=== PATIENT | male | born 1985 | race Caucasian/White ===

== ENCOUNTER 2022-05-05 14:36 | Emergency (ER) | payer OTHER, SELFPAY ==
--- NOTE | ~2022-05-05 | XR_ITS ---
EXAM: XR abdomen/kub 1V DATE: 05/05/2022 18:17 HISTORY: ureterolithiasis . COMPARISON: CT abdomen and pelvis, same date. FINDINGS: Clear lung bases. Normal bowel gas pattern. No organomegaly. 6 mm left UPJ stone. Regional bones and soft tissues normal for age. IMPRESSION: 6 mm left UPJ stone. Reviewed, dictated and finalized at location K. IMPRESSION: 6 mm left UPJ stone.
--- NOTE | ~2022-05-05 | CT_ITS ---
EXAMINATION: CT abdomen pelvis wo con DATE: 05/05/2022 17:22 INDICATION: kidney stone ?? TECHNIQUE: Computed tomography (CT) of the abdomen and pelvis was performed without intravenous contr ast. Automated exposure control and iterative reconstruction technique were employed. The dose-length product was 1528.33 mGy-cm. COMPARISON: 08/19/2019. FINDINGS: Lower thorax: Unremarkable Liver: Enlarged and low density. Biliary/Gallbladder: Gallbladder is normal. No bile duct dilation. Pancreas: No mass or duct dilation. Spleen: Normal. Adrenals:No mass. Kidneys: Multiple bilateral renal calculi. Mild proximal left hydronephrosis and perinephric strandin g. 8mm left UPJ stone GI tract: No small or large bowel dilation. Normal appendix. Long segment soft tissue density wall th ickening of the distal sigmoid. Diverticulosis without diverticulitis. Mesentery/Peritoneum: No ascites, mass, or free air. Retroperitoneum: No mass. Pelvis: Pelvic organs are within normal limits. Soft Tissues: Soft tissues and body wall unremarkable. Bones: No acute osseous finding. IMPRESSION: 8 mm left UPJ stone causing mild obstructive uropathy. Hepatomegaly with steatosis. Sigmoid colon wal l thickening may reflect lack of distention or mild infectious/inflammatory change in the appropriate clinical context. Reviewed, dictated and finalized at location K. IMPRESSION: 8 mm left UPJ stone causing mild obstructive uropathy. Hepatomegaly with steato sis. Sigmoid colon wall thickening may reflect lack of distention or mild infec tious/inflammatory change in the appropriate clinical context.
[2022-05-05 14:37] VITALS: BP 183/95; PULSE 99; RESP 14; TEMP 35.9; O2SAT 97
[2022-05-05 14:56] LABS: Basophils Percent Auto 0.3 % (0.2-1.2); Eosinophils Absolute Auto 0.1 K/mm3 (0-0.3); Eosinophils Percent Auto 1.2 % (0-4.4); Hematocrit 44.6 % (42.0-52.0); Hemoglobin 14.8 g/dL (14.0-18.0); Immature Granulocyte Absolute 0.03 K/mm3 (0.00-0.031); Immature Granulocyte Percent A 0.3 % (0-0.5); Lymphocytes Absolute Auto 1.37 K/mm3 (0.9-3.2); Mean Corpuscular HGB Conc 33.2 g/dl (32-36); Mean Corpuscular Hemoglobin 29.7 pg (26-34); Mean Corpuscular Volume 89.4 fl (80-100); Monocytes Absolute Auto 0.7 K/mm3 (0.1-0.6); Neutrophils Absolute Auto 7.5 K/mm3 (1.3-6.7); Neutrophils Percent Auto 77.2 % (45.5-73.1); Platelet Count Result 353 k/mm3 (150-375); Red Blood Count 4.99 M/mm3 (4.6-6.20); Red Cell Distribution Width 13.3 % (11.5-14.5); White Blood Count 9.8 K/mm3 (4.5-10.0)
[2022-05-05 14:57] LABS: Appearance Urine Slightly Cloudy (Clear); Bilirubin Urine Negative (Negative); Blood Urine 3+ (Negative); Color Urine Yellow (Yellow); Glucose Urine UA Negative (Negative); Ketones Urine Negative (Negative); Leukocyte Esterase Ur Trace LEU/UL (Negative); Nitrate Urine Negative (Negative); Protein Urine Negative (Negative); Specific Grav Ur >= 1.030 (1.001-1.035); Urobilinogen Urine 0.2 mg/dL (<2.0)
[2022-05-05 15:05] LABS: Mucus Urine Rare /lpf; RBC Urine >75 /hpf (0-2); Squamous Epithelial Cell Urine Rare /hpf (Few); WBC Urine 0-3 /hpf
[2022-05-05 15:06] LABS: Alanine Aminotransferase 50 U/L (6-50); Alkaline Phosphatase 123 U/L (38-126); Anion Gap 11 mmol/L (8-16); Aspartate Amino Transferase 36 U/L (17-59); Bilirubin,Total 0.6 mg/dL (0.2-1.3); Blood Urea Nitrogen 12 mg/dL (9-20); Calcium 9.3 mg/dL (8.4-10.2); Carbon Dioxide 23 mmol/L (22-30); Chloride 106 mmol/L (98-107); Estimated CRCL calculation 152 ml/min; Estimated Glomerular Filt Rate > 60; Glucose 115 mg/dL (65-110); Lipase 55 U/L (23-300); Potassium 3.9 mmol/L (3.4-5.0); Sodium 140 mmol/L (137-145)
[2022-05-05 15:23] LABS: Add Urine Microscopic? YES
[2022-05-05 17:39] VITALS: BP 187/106; PULSE 87; RESP 15; O2SAT 100
--- NOTE | 2022-05-05 17:48 | ED.ABDPAIN ---
HPI - Abdominal Pain General Chief Complaint: Abdominal Pain Stated Complaint: lower abdomen pain x1 day Time Seen by Provider: 05/05/22 17:13 Source: patient Mode of arrival: ambulatory Limitations: no limitations History of Present Illness HPI narrative: This is a 36 year old male that presents to the ER for LLQ pain ongoing today. Reports the pain is sharp and constant in nature. Intermittently worse. Reports history of kidney stones. Denies fever, vomiting, dysuria, hematuria. Related Data Home Medications Medication Instructions Recorded Confirmed risankizumab-rzaa 150 mg/mL 150 mg subcut .every 3 months 09/27/21 09/29/21 subcutaneous pen injector (Skyrizi) Allergies Allergy/AdvReac Type Severity Reaction Status Date / Time BETADINE,IODINE Allergy Mild Unknown Uncoded 05/05/22 14:39 Review of Systems Review of Systems: CONSTITUTIONAL: Denies fever GASTROINTESTINAL: Reports abdominal pain. Denies nausea, vomiting, or diarrhea. GENITOURINARY: Denies dysuria or hematuria. All systems reviewed & are unremarkable except as noted in HPI and below PMFSH Past Medical History Medical History (Updated 05/05/22 @ 19:38 by Luz Estrella PA-C) Asthma HTN (hypertension) Psoriasis Surgical History Surgical History H/O hernia repair Family History Family History Father Hypertension Mother Hypertension Social History Social History Smoking status: Never smoker Alcohol intake: current Drinks per week: 3 Alcohol use details: whiskey Substance use type: does not use Additional occupation/education comments: [employer] Gender identity (if verbalized by the patient): Male Spiritual care concerns: No Exam Narrative: GENERAL: Well-appearing, well-nourished, and in no acute distress. HEAD: Normocephalic, atraumatic. EYES: EOMI. CHEST: Clear to auscultation. No respiratory distress. No wheezes rales or rhonchi HEART: Regular rate and rhythm. No murmur heard. Normal peripheral pulses. ABDOMEN: Soft, nontender, nondistended, normal active bowel sounds. No CVA tenderness EXTREMITIES: Normal range of motion. No edema. SKIN: Warm, dry, no rash. NEURO: No focal deficits. Alert and oriented x3. PSYCH: Normal mood and affect Course Consultations Consultation #1: Spoke with urology about patient and work-up who will follow-up in clinic. Date: 05/05/22 Vital Signs Vital signs: Vital Signs Temperature 96.7 F L 05/05/22 14:37 Pulse Rate 99 05/05/22 14:37 Respiratory Rate 14 05/05/22 14:37 Blood Pressure 183/95 H 05/05/22 14:37 Pulse Oximetry 97 05/05/22 14:37 Oxygen Delivery Room Air 05/05/22 14:37 Temperature 96.7 F L 05/05/22 14:37 Pulse Rate 87 05/05/22 17:39 Respiratory Rate 15 05/05/22 17:39 Blood Pressure 187/106 H 05/05/22 17:39 Pulse Oximetry 100 05/05/22 17:39 Oxygen Delivery Room Air 05/05/22 14:37 MDM - Abdominal Pain MDM Narrative Medical decision making narrative: Patient presents to the emergency department for left lower quadrant pain present today. He is afebrile and nontoxic-appearing. CBC is without leukocytosis. Metabolic panel with normal-appearing kidney function. UA without evidence of infection. Does show greater than [address] scan of the abdomen and pelvis shows an 8 mm left UPJ stone causing mild obstructive uropathy. KUB definitively identify a stone. Patient was updated on case findings. Hydrated and given pain medication with improvement in the ED. Spoke with urology about patient and work-up who will follow-up in clinic. Patient is stable and felt appropriate for further outpatient evaluation. He was given warnings to return to the ER Blood pressure elevated initially, this normalized with treatment of his michel
[2022-05-05] MEDS: ONDANSETRON INJ 4 MG/2 ML VIAL IV PUSH (18:03)
[2022-05-05] MEDS: SODIUM CHLORIDE 0.9% IV 1,000 ML 999 ML IV CONT (18:03)
[2022-05-05] MEDS: MORPHINE SULFATE (*CRX) 4 MG/ML INJ IV PUSH (19:05)
[2022-05-05 20:18] VITALS: BP 130/75; PULSE 88; RESP 18; O2SAT 99
== END 2022-05-05 20:21 | disposition home or self-care (01) ==
PROVIDERS: Emergency Provider Emergency Medicine; PCP Physician Assistant
DX: N13.9 Obstructive and reflux uropathy, unspecified (principal); N20.1 Calculus of ureter; J45.909 Unspecified asthma, uncomplicated; I10 Essential (primary) hypertension; R16.2 Hepatomegaly with splenomegaly, not elsewhere classified
CPT/HCPCS: 36415; 74018; 74176; 80053; 81001; 83690; 85025; 96361; 96365; 96375; 99284; J0131; J2270; J2405; J7030

== ENCOUNTER 2022-05-08 11:43 | Outpatient (CLI) | payer OTHER, SELFPAY ==
--- NOTE | ~2022-05-08 | XR_ITS ---
EXAMINATION: XR abdomen/kub 1V DATE: 05/08/2022 12:10 INDICATION: Left ureteral stone. TECHNIQUE: A supine view of the abdomen on 2 radiographs was obtained. COMPARISON: CT abdomen and pelvis 05/05/2022 FINDINGS: There are no dilated loops of bowel. There is a moderate volume of stool in the colon. Ther e is a 7 mm stone in proximal left ureter. IMPRESSION: 1. 7 mm stone in proximal left ureter. Reviewed, dictated and finalized at location A.
== END 2022-05-08 11:44 | disposition home or self-care (01) ==
LOC: ANHIMG 12:01
PROVIDERS: PCP Physician Assistant; Visit Provider Nurse Practitioner Adult Health
DX: N20.1 Calculus of ureter (principal)
CPT/HCPCS: 74018

== ENCOUNTER 2022-05-16 02:46 | Day surgery (SDC) | payer OTHER, SELFPAY ==
[2022-05-15 16:04] VITALS: BMI 39.7
--- NOTE | 2022-05-15 16:14 | PC.NURSE ---
Report to the Outpatient Waiting Room, entrance under the green pavilion located off [facility], at time 0830 on date 05/16/22. OR Time: 1030. - You and your visitor will be asked a series of questions to screen for COVID 19 for your protection. - Only one visitor is allowed at this time. - The patient visitor is requested to leave or wait in car when not with patient. - A mask is required within the hospital. Patients may have clear liquids (water, carbonated beverages, clear teas, apple juice) until 3 hours prior to surgery with a maximum of 20 ounces. - No food from midnight until time of surgery Take the following medications with a SIP of water the morning of surgery: AMLODIPINE, PAIN PILL (IF NEEDED) Medications to discontinue per physician: N/A Date to take last dose: N/A Please no make-up, nail croatian, hairspray, perfume, deodorant, or body powder the day of surgery. No jewelry (including any body piercings) or valuables the day of surgery, leave them at home. Please take a shower or bath the night before, or the morning of, surgery with an antibacterial soap. Wear comfortable, loose fitting clothing. - Jewelry must be removed prior to entering the operating room. Rings and piercings that are not removed may be cut off. - The hospital will not accept responsibility for valuables. - Please leave all valuables, including medications, at home the day of surgery. If you are going home after surgery, a licensed coal tram driver must drive you home. - NO public transportation without another adult. - We recommend that an adult stay with you for 24 hours following discharge. - We also recommend that you do not drive, make important decision, drink alcoholic beverages, or take any drugs that were not prescribed by your health care provider for at least 24 hours after your discharge time. Follow any additional instructions given to you from your surgeon. If you or anyone in your household have experienced Covid symptoms in the past week, please notify your surgeon or the nurse liaison at the phone number below for possible testing. Telephone instructions given to PT - MARTINEZ ESPINAL and asked if any additional questions and then verbalized understanding. Patient advised to call surgeon office or pre surgery nurse liaison [phone] if any additional questions.
--- NOTE | ~2022-05-16 | XR_ITS ---
EXAMINATION: XR abdomen/kub 1V INDICATION: Left sided stone TECHNIQUE: Supine views of the abdomen were obtained on 2 radiographs. COMPARISON: 05/08/2022 FINDINGS: There is a 5 mm stone in the proximal left ureter projecting between the left L2 and L3 tra nsverse processes. No additional urolithiasis is noted. The bowel gas pattern is normal. The visualiz ed lung bases are clear. IMPRESSION: 1. 5 mm stone in the proximal left ureter. Reviewed, dictated and finalized at location L.
--- NOTE | 2022-05-16 06:53 | WPDHPUPDATE1 ---
History and Physical Update Update Date/Time: 05/16/22 06:53 History and Physical has been reviewed, including an updated exam of the patient. There are NO changes in the patient's condition. Risks, benefits, and alternatives have been discussed and questions answered. Patient agrees to proceed with procedure.
--- NOTE | 2022-05-16 09:08 | P.PNAN_ITS ---
Anes - Initial Pre Proc Eval Procedure: Operation Date: 05/16/22 10:30 Proposed Procedures p Left Extracorporeal Shock Wave Lithotripsy - Isaac Johnson MD Date/Time: 05/16/22 09:08 Surgeon: Isaac Johnson MD Pre Op Diagnosis: Lt Ureteral Kidney Stone Patient Data Age: 36 Gender: M Height: 1.8 m Weight: 129.27 kg Allergies Allergy/AdvReac Type Severity Reaction Status Date / Time iodine Allergy Rash Verified 05/15/22 16:01 povidone-iodine Allergy Rash Verified 05/15/22 16:01 [From Betadine] Home Medications Medication Instructions Recorded Confirmed Type risankizumab-rzaa 150 mg/mL 150 mg subcut .every 3 months 09/27/21 05/15/22 History subcutaneous pen injector (Skyrizi) amlodipine 10 mg tablet 10 mg PO DAILY #90 tabs 04/01/22 05/15/22 Rx hydrocodone 5 mg-acetaminophen 325 1 tablet PO Q6H PRN pain #20 tabs 05/05/22 05/15/22 Rx mg tablet albuterol sulfate 90 mcg/actuation 2 inh inhalation Q4-6H PRN 05/15/22 05/15/22 History aerosol inhaler (ProAir HFA) Bronchospasm loratadine 10 mg tablet (Claritin) 10 mg PO DAILY PRN Allergy Symptoms 05/15/22 05/15/22 History Patient hx anesthesia problems: none Family hx anesthesia problems: none Results Review: All pre-operative results and documents have been reviewed as part of the pre- operative evaluation. [facility] Past Medical History Medical History (Updated 05/06/22 @ 00:00 by Erica Mills) Asthma HTN (hypertension) Psoriasis Surgical History Surgical History H/O hernia repair Family History Family History Father Hypertension Mother Hypertension Social History Social History Smoking packs per day: 0.5 Smoking cigarettes per day: 10.0 Years smoked: 2 Smoking pack-years: 1.00 Smoking status: Former smoker Tobacco type: cigarettes Smoking end date: 10/19/15 Alcohol intake: current Drinks per week: 5 Alcohol use details: desean Substance use: never Substance use type: does not use Living arrangements: alone Additional occupation/education comments: [employer] Gender identity (if verbalized by the patient): Male Spiritual care concerns: No Anes - Eval Final PreProcedure Day of Procedure 05/16/22 09:08 Patient weight: morbidly obese Heart: regular rate and rhythm Lungs: clear to auscultation Airway: Mallampati scale class II Neurological: alert and oriented Last oral intake: >/= 8 hours ASA classification: III Emergent: no Anesthetic plan: proceed Anesthesia type and monitoring: general LMA and standard monitoring Results Review: All pre-operative results and documents have been reviewed as part of the pre- operative evaluation. Informed Consent: The patient's anesthetic plan and its attendant risks and benefits were discussed with the patient/family/POA. Questions were solicited and answers provided to the satisfaction of the patient/family/POA.
[2022-05-16 09:30] VITALS: BP 156/95; PULSE 92; RESP 16; TEMP 36.2; O2SAT 97
[2022-05-16] MEDS: LACTATED RINGERS 1,000 ML 30 ML IV CONT (09:30)
[2022-05-16] MEDS: ceFAZolin 2 GM/D5W 50 ML 2 GM/50 ML BAG IVPB (09:49)
[2022-05-16 10:02] LABS: INR 1.1; Prothrombin Time 13.7 Seconds (11.1-14.7)
[2022-05-16 10:03] LABS: Partial Thromboplastin Time 30.8 SECONDS (22.3-36.8)
[2022-05-16] MEDS: KETOROLAC 30 MG/ML VIAL (*BKC) IV PUSH (10:03)
--- NOTE | 2022-05-16 10:17 | W.PM.PROC2 ---
Procedure Note - Detailed Date of Procedure 05/16/22 Pre-op Diagnosis Left UPJ calculus Post-op Diagnosis Same Procedure Performed Left ESWL Surgeon Isaac Johnson MD Description of Procedure The patient was brought to the operative suite where he was placed in the supine position on the Dornier lithotripsy table. The focal point of the lithotripter was placed at a 8mm left UPJ calculus. A total of 2500 shocks were delivered at a power setting of 4. There appeared to be good fragmentation of the stone. The patient tolerated the procedure well and was taken to the recovery room in good condition. Pathology None sent Complications No immediate complications Condition Stable Disposition PACU
[2022-05-16 10:31] VITALS: BP 125/76; PULSE 97; RESP 18; TEMP 37.1; O2SAT 98
[2022-05-16 10:45] VITALS: BP 127/75; PULSE 91; RESP 17; O2SAT 100
[2022-05-16 11:00] VITALS: BP 140/89; PULSE 84; RESP 12; O2SAT 98
--- NOTE | 2022-05-16 11:17 | SUR.PREOP ---
PT/PTT WAS PENDING WHEN PT TO OR; OK WITH PT GOING TO OR BEFORE RESULTS RELEASED. EKG WAIVED BY DR. BAIN.
[2022-05-16 11:18] VITALS: BP 140/91; PULSE 77; RESP 12
[2022-05-16 11:48] VITALS: BP 140/92; PULSE 77; RESP 12
== END 2022-05-16 11:57 | disposition home or self-care (01) ==
PROVIDERS: PCP Physician Assistant; Visit Provider Urology
PROC: (CPT 50590; principal; 2022-05-16 10:30)
DX: N20.0 Calculus of kidney (principal); R10.9 Unspecified abdominal pain; R31.29 Other microscopic hematuria; Z79.51 Long term (current) use of inhaled steroids; I10 Essential (primary) hypertension; J45.909 Unspecified asthma, uncomplicated; L40.9 Psoriasis, unspecified; Z87.891 Personal history of nicotine dependence; E66.01 Morbid (severe) obesity due to excess calories; Z68.37 Body mass index [BMI] 37.0-37.9, adult
CPT/HCPCS: 50590; 36415; 74018; 85610; 85730; J0690; J1100; J1885; J2250; J2405; J2704; J3010; J7120

== ENCOUNTER 2022-11-13 07:41 | Outpatient (RCR) | payer OTHER, SELFPAY ==
[2022-11-13 08:54] VITALS: BMI 40.3
[2022-11-13 08:55] VITALS: BMI 40.3
== END 2023-02-03 11:57 | disposition home or self-care (01) ==
LOC: ANHDMC 07:41
PROVIDERS: PCP Physician Assistant; Visit Provider Physician Assistant
DX: E66.01 Morbid (severe) obesity due to excess calories (principal); Z68.41 Body mass index [BMI] 40.0-44.9, adult; Z71.3 Dietary counseling and surveillance
CPT/HCPCS: 97802

== ENCOUNTER 2022-11-13 08:53 | Outpatient (CLI) | payer OTHER, SELFPAY ==
[2022-11-13 12:36] LABS: Basophils Percent Auto 0.5 % (0.2-1.2); Eosinophils Absolute Auto 0.2 K/mm3 (0-0.3); Eosinophils Percent Auto 2.5 % (0-4.4); Hematocrit 41.9 % (42.0-52.0); Immature Granulocyte Absolute 0.02 K/mm3 (0.00-0.031); Immature Granulocyte Percent A 0.3 % (0-0.5); Immature Platelet Fraction Pct 4.5 % (0.9-11.2); Lymphocytes Absolute Auto 1.92 K/mm3 (0.9-3.2); Lymphocytes Percent Auto 24.2 % (18.3-44.2); Mean Corpuscular HGB Conc 33.4 g/dl (32-36); Mean Corpuscular Hemoglobin 29.5 pg (26-34); Mean Corpuscular Volume 88.2 fl (80-100); Monocytes Absolute Auto 0.7 K/mm3 (0.1-0.6); Monocytes Percent Auto 8.4 % (2.6-8.5); Neutrophils Absolute Auto 5.1 K/mm3 (1.3-6.7); Neutrophils Percent Auto 64.1 % (45.5-73.1); Platelet Count Result 371 k/mm3 (150-375); Red Blood Count 4.75 M/mm3 (4.6-6.20); Red Cell Distribution Width 13.2 % (11.5-14.5); White Blood Count 7.9 K/mm3 (4.5-10.0)
[2022-11-13 13:00] LABS: Alanine Aminotransferase 48 U/L (6-50); Albumin Level 4.3 g/dL (3.5-5.1); Alkaline Phosphatase 98 U/L (38-126); Anion Gap 8 mmol/L (8-16); Aspartate Amino Transferase 45 U/L (17-59); Bilirubin,Total 0.6 mg/dL (0.2-1.3); Blood Urea Nitrogen 14 mg/dL (9-20); Calcium 8.9 mg/dL (8.4-10.2); Carbon Dioxide 26 mmol/L (22-30); Chloride 104 mmol/L (98-107); Cholesterol 251 mg/dL (0-200); Estimated Glomerular Filt Rate > 60; Glucose 100 mg/dL (65-110); HDL Direct 40 mg/dL; Potassium 4.1 mmol/L (3.4-5.0); Sodium 138 mmol/L (137-145); Triglycerides 344 mg/dL (<150)
[2022-11-13 13:11] LABS: LDL Cholesterol Direct 123 mg/dL
[2022-11-13 13:24] LABS: Thyroid Stimulating Hormone 0.653 uIU/mL (0.465-4.680)
[2022-11-13 13:59] LABS: Folic Acid 14.8 ng/mL (2.76->20)
== END 2022-11-13 08:54 | disposition home or self-care (01) ==
LOC: ANHWCLAB 08:57
PROVIDERS: PCP Physician Assistant
DX: Z00.00 Encounter for general adult medical examination without abnormal findings (principal); E78.5 Hyperlipidemia, unspecified; I10 Essential (primary) hypertension; R53.83 Other fatigue
CPT/HCPCS: 36415; 80053; 80061; 82607; 82746; 84443; 85025; 85055

== ENCOUNTER 2025-04-18 10:54 | Outpatient (CLI) | payer OTHER, SELFPAY ==
--- OUTSIDE RECORDS SUMMARY | 2025-04-18 11:05 | XMS_ITS | Clinical Summary ---
Author Organization [facility] Address [address] [place] [address] Phone Care Team Providers Care Sulfur Burner Name Role Phone Jakob Siegel Primary Care Provider Allergies Active Allergy Reactions Criticality Noted Date Comments Povidone Iodine Rash 12/09/2021 Iodine Rash 12/09/2021 Medications HYDROcodone-vickie taminophen (NORCO) 5-325 MG TabletIndicatio ns:Facial laceration, initial encounter Take 1-2 Tablets by mouth every 6 hours as needed for Moderate or more severe pain. 5 Tablet 12/09/2021 Active Immunizations Immunization Administration Dates Next Due TDAP Vaccine 12/09/2021 Social History Tobacco Use Types Packs/Day Years Used Date Smoking Tobacco: Former Smokeless Tobacco: Current Alcohol Use Standard Drinks/Week Comments Yes 0 (1 standard drink = 0.6 oz pur e alcohol) Sex and Gender Information Value Date Recorded Sex Assigned at Not on file Legal Sex Male 1:26 PM DEAN OF FACULTY Gender Identity Not on file Sexual Orientation Not on file Last Filed Vital Signs Vital Sign Reading Time Taken Comments Blood Pressure 187/90 12/09/2021 3:54 PM DEAN OF FACULTY Pulse 90 12/09/2021 3:54 PM DEAN OF FACULTY Temperature 36.2 C (97.1 F) 12/09/2021 1:30 PM DEAN OF FACULTY Respiratory Rate 14 12/09/2021 3:54 PM DEAN OF FACULTY Oxygen Saturation 98% 12/09/2021 3:54 PM DEAN OF FACULTY Inhaled Oxygen Concentration - - Weight 127 kg (280 lb) 12/09/2021 1:30 PM DEAN OF FACULTY Height 180.3 cm (5' 11) 12/09/2021 1:30 PM DEAN OF FACULTY Body Mass Index 39.05 12/09/2021 1:30 PM DEAN OF FACULTY Plan of Treatment Health Maintenance Due Date Last Done Comments Hepatitis C Virus (HCV) Screening 1986 Hepatitis B Immunization (1 of 3 - 19+ 3-dose series) 2005 SARS-COV-2 Immunization ( season) 2024 Influenza Immunization (Seas on Ended) 2025 Respiratory Syncytial Virus (RSV) Immunization (Adult) (1 - 1-dose 75+ series) 2061 DTaP/Tdap/Td Immunization Discontinued 12/09/2021 Human Papillomavirus (HPV) Immunization Aged Out No longer eligible b ased on patient's age to complete this topic Meningococcal Immunization (ACWY) Aged Out No longer eligible based on patient's age to complete this topic Pneumococcal Immunization Combined Aged Out No longer eligible based on patient's age to complete this topic Rotavirus Immunization Aged Out No lo nger eligible based on patient's age to complete this topic Insurance GENERIC Care Teams Sulfur Burner Relationship Specialty Start Date End Date Jakob Siegel PAC [address] [facility] [address] [facility] [address] [place], [place] [phone] PCP - General Physician Grounds Caretaker 12/09/21
[2025-04-18 11:21] LABS: Hematocrit 43.5 % (42.0-52.0); Hemoglobin 14.6 g/dL (14.0-18.0); Immature Granulocyte Percent A 0.2 % (0-0.5); Lymphocytes Absolute Auto 1.69 K/mm3 (0.9-3.2); Mean Corpuscular HGB Conc 33.6 g/dl (32-36); Mean Corpuscular Hemoglobin 29.9 pg (26-34); Mean Corpuscular Volume 89.1 fl (80-100); Nucleated Red Blood Cells Absolute Auto 0.000 K/mm3 (0.0-0.012); Nucleated Red Blood Cells Perc 0.0 % (0.0-0.2); Platelet Count Result 318 k/mm3 (150-375); Red Blood Count 4.88 M/mm3 (4.6-6.20); White Blood Count 6.0 K/mm3 (4.5-10.0)
[2025-04-18 11:37] LABS: Alanine Aminotransferase 47 U/L (6-50); Albumin Level 4.7 g/dL (3.5-5.1); Alkaline Phosphatase 86 U/L (38-126); Anion Gap 12 mmol/L (4-12); Aspartate Amino Transferase 34 U/L (17-59); Bilirubin,Total 0.5 mg/dL (0.2-1.3); Blood Urea Nitrogen 15 mg/dL (9-20); Calcium 9.6 mg/dL (8.4-10.2); Carbon Dioxide 25 mmol/L (22-30); Chloride 103 mmol/L (98-107); Cholesterol 214 mg/dL (0-200); Estimated Glomerular Filt Rate > 60; Glucose 107 mg/dL (65-110); HDL Direct 43 mg/dL; Potassium 3.8 mmol/L (3.4-5.0); Sodium 140 mmol/L (137-145); Total Protein 8.5 g/dL (6.3-8.2); Triglycerides 164 mg/dL (<150)
== END 2025-04-18 10:55 | disposition home or self-care (01) ==
PROVIDERS: PCP Internal Medicine; Visit Provider Internal Medicine
DX: K57.92 Diverticulitis of intestine, part unspecified, without perforation or abscess without bleeding (principal); I10 Essential (primary) hypertension; E78.5 Hyperlipidemia, unspecified
CPT/HCPCS: 36415; 80053; 80061; 85025

== ENCOUNTER 2025-05-01 13:35 | Outpatient (CLI) | payer OTHER, SELFPAY ==
--- OUTSIDE RECORDS SUMMARY | 2025-05-01 13:47 | XMS_ITS | Clinical Summary ---
Author Organization [facility] Address [address] [place] [address] Phone Care Team Providers Care Pipe Bender Name Role Phone Jakob Siegel Primary Care [...] on file Legal Sex Male 1:26 PM MANAGER ENTRY Gender Identity Not on file Sexual Orientation Not on file Last Filed Vital Signs Vital Sign Reading Time Taken Comments Blood Pressure 187/90 12/09/2021 3:54 PM MANAGER ENTRY Pulse 90 12/09/2021 3:54 PM MANAGER ENTRY Temperature 36.2 C (97.1 F) 12/09/2021 1:30 PM MANAGER ENTRY Respiratory Rate 14 12/09/2021 3:54 PM MANAGER ENTRY Oxygen Saturation 98% 12/09/2021 3:54 PM MANAGER ENTRY Inhaled Oxygen Concentration - - Weight 127 kg (280 lb) 12/09/2021 1:30 PM MANAGER ENTRY Height 180.3 cm (5' 11) 12/09/2021 1:30 PM MANAGER ENTRY Body Mass Index 39.05 12/09/2021 1:30 PM MANAGER ENTRY Plan of Treatment Health Maintenance Due Date Last Done Comments Hepatitis C Virus (HCV) Screening 1985 Human Papillomavirus (HPV) Immunization (1 - Male 3-dose series) 2001 Hepatitis B Immunization (1 of 3 - 19+ 3-dose series) 2005 SARS-COV-2 Immunization ( - 2023- season) 2024 Influenza Immunization (#1) 2025 Respiratory Syncytial Virus (RSV) Immunization (Adult) (1 - 1-dose 75+ series) 2061 DTaP/Tdap/Td Immunization Discontinued 12/09/2021 Meningococcal Immunization (ACWY) Aged Out No longer eligible based on patient's age to complete this topic Pneumococcal Immunization Combined Aged Out No longer eligible based on patient's age to complete this topic Rotavirus Immunization Aged Out No lo nger eligible based on patient's age to complete this topic Insurance GENERIC Care Teams Pipe Bender Relationship Specialty Start Date End Date Jakob Siegel PAC [address] [facility] [address] [facility] [address] [place], [place] [phone] PCP - General Physician Bobbin Dumper 12/09/21
--- NOTE | 2025-05-01 13:48 | ECG_ITS ---
Test Date: 2025-05-01 14:17:57 Measurements Intervals [place] Rate: 80 P: 25 DE: 159 QRS: 61 QRSD: 101 T: 43 QT: 346 QTc: 401 Interpretive Statements SINUS RHYTHM NORMAL ELECTROCARDIOGRAM No previous ECG available for comparison Electronically Signed On 05-02-2025 10:00:25 CDT by Cj Cowart M.D.
[2025-05-01 14:41] LABS: Hematocrit 42.7 % (42.0-52.0); Hemoglobin 14.1 g/dL (14.0-18.0); Immature Granulocyte Percent A 0.4 % (0-0.5); Lymphocytes Absolute Auto 1.87 K/mm3 (0.9-3.2); Mean Corpuscular HGB Conc 33.0 g/dl (32-36); Mean Corpuscular Hemoglobin 29.3 pg (26-34); Mean Corpuscular Volume 88.8 fl (80-100); Nucleated Red Blood Cells Absolute Auto 0.000 K/mm3 (0.0-0.012); Nucleated Red Blood Cells Perc 0.0 % (0.0-0.2); Platelet Count Result 316 k/mm3 (150-375); Red Blood Count 4.81 M/mm3 (4.6-6.20); White Blood Count 7.2 K/mm3 (4.5-10.0)
== END 2025-05-01 13:36 | disposition home or self-care (01) ==
LOC: ANHSURGERY 13:42
PROVIDERS: PCP Internal Medicine; Visit Provider Surgery
DX: I10 Essential (primary) hypertension (principal); L72.0 Epidermal cyst
CPT/HCPCS: 36415; 85025; 93005

== ENCOUNTER 2025-07-19 15:41 | Outpatient (CLI) | payer OTHER, SELFPAY ==
--- NOTE | ~2025-07-19 | XR_ITS ---
XR lumbar spine 2-3V Indication: M54.16 - Radiculopathy, lumbar region, SCIATIC PAIN X 2 WKS Comparison: None Findings: The vertebral heights are intact. No fracture or subluxation. The disc heights are intact. Soft tissues unremarkable Impression: No acute abnormality. Reviewed, dictated and finalized at location P. Impression: No acute abnormality.
--- OUTSIDE RECORDS SUMMARY | 2025-07-19 15:50 | XMS_ITS | Clinical Summary ---
Author Organization [facility] Address [address] [place] [address] Phone Care Team Providers Care Dental Scheduling Coordinator Name Role Phone Jakob Siegel Primary Care [...] on file Legal Sex Male 1:26 PM APPLICATION SYSTEMS ARCHITECT Gender Identity Not on file Sexual Orientation Not on file Last Filed Vital Signs Vital Sign Reading Time Taken Comments Blood Pressure 187/90 12/09/2021 3:54 PM APPLICATION SYSTEMS ARCHITECT Pulse 90 12/09/2021 3:54 PM APPLICATION SYSTEMS ARCHITECT Temperature 36.2 C (97.1 F) 12/09/2021 1:30 PM APPLICATION SYSTEMS ARCHITECT Respiratory Rate 14 12/09/2021 3:54 PM APPLICATION SYSTEMS ARCHITECT Oxygen Saturation 98% 12/09/2021 3:54 PM APPLICATION SYSTEMS ARCHITECT Inhaled Oxygen Concentration - - Weight 127 kg (280 lb) 12/09/2021 1:30 PM APPLICATION SYSTEMS ARCHITECT Height 180.3 cm (5' 11) 12/09/2021 1:30 PM APPLICATION SYSTEMS ARCHITECT Body Mass Index 39.05 12/09/2021 1:30 PM APPLICATION SYSTEMS ARCHITECT Plan of Treatment Health Maintenance Due Date Last Done Comments Hepatitis C Virus (HCV) Screening 1986 Hepatitis B Immunization (1 of 3 - 19+ 3-dose series) 2005 Human Papillomavirus (HPV) Immunization (1 - 3-dose SCDM series) 2013 Influenza Immunization (#1) 2025 SARS-COV-2 Immunization ( - season) 2025 Respiratory Syncytial Virus (RSV) Immunization (Adult) [...] complete this topic Insurance GENERIC Care Teams Dental Scheduling Coordinator Relationship Specialty Start Date End Date Jakob Siegel PAC [address] [facility] [address] [facility] [address] [place], [place] [phone] PCP - General Physician Eyeglass Maker 12/09/21
== END 2025-07-19 15:42 | disposition home or self-care (01) ==
PROVIDERS: PCP Internal Medicine; Visit Provider Internal Medicine
DX: M54.16 Radiculopathy, lumbar region (principal)
CPT/HCPCS: 72100